=== PATIENT | male | born 1970 | race Hispanic/Latino ===

== ENCOUNTER 2018-07-21 11:54 | Emergency (ER) | payer OTHER, MEDICAID, SELFPAY ==
[2018-07-21 12:02] VITALS: BP 165/103; PULSE 96; RESP 20; TEMP 36.9; O2SAT 100; BMI 46.2
--- NOTE | 2018-07-21 12:16 | PC.NURSE ---
left arm with limited rom due to pain, unable to hyperextend.
--- NOTE | 2018-07-21 12:18 | DI.RAD.S_ITS ---
PROCEDURE: XR SHOULDER LT MIN 2V INDICATIONS: left shoulder pain, now with limited rom TECHNIQUE: 3 views of the shoulder were acquired. COMPARISON: [facility], CR, XR SHOULDER 2+ VIEWS LEFT, 06/05/2018, 9:58. FINDINGS: Bones: No fractures or dislocations. No suspicious bony lesions. Visualized ribs appear intact. Soft tissues: No suspicious soft tissue calcifications. IMPRESSION: No acute fracture. No osseous lesion. If symptoms and/or clinical suspicion for pathology persist, further assessment with repeat, or advanced imaging (e.g., CT, MRI, or bone scan) may be helpful for further assessment. Dictated by: Elina Aleman M.D. on 07/21/2018 at 12:32 Approved by: Elina Aleman M.D. on 07/21/2018 at 12:32
--- NOTE | 2018-07-21 12:44 | ED.UPPEXIN ---
HPI - Extremity Injury (Upper) <Avis Nicholson PA-C - Last Filed: 07/21/18 17:07> General Chief Complaint: Extremity Injury, Upper Stated Complaint: left shoulder pain since beginning of May Time Seen by Provider: 07/21/18 12:44 Source: patient Mode of arrival: ambulatory Limitations: no limitations History of Present Illness HPI narrative: This 48-year-old male comes in due to recurrent right shoulder pain. He states that he has a history of gout attack in his ankles, and most recently in his left knee. He states that in the last 6-8 weeks, he has had 3 episodes of the shoulder pain. They start at the end of a gout attack in his knee. He states that the knee will swell up, get red and painful typical of his gout to the point that he has to walk on crutches. As the pain improves, he starts to have pain in the left shoulder. He states that his PCP did see him in initially thought this was due to muscular strain as patient thought he might have slept awkwardly, however this has occurred again twice in the same setting. He started have a gout attack again 9 days ago, again in the left knee with redness, swelling, and pain. He states this has been better in the last couple of days and walking without crutches, however he awoke with shoulder pain again today. He states the pain is similar to when he had an early rotator cuff problem on that side (he is status post rotator cuff repair many years ago). He states that ibuprofen has not helped that much, Flexeril seem to help. He states that pain worsens with any position change, are movement with cough or turning, better in neutral position. He denies any chest pain or dyspnea. He denies any fever or other new symptoms with this. He does take allopurinol, states he had been taking 100 mg daily until 2 days ago when he ran out. He denies any other complaints on systems review. 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 Related Data Previous Rx's Medication Instructions Recorded allopurinol 100 mg PO DAILY #10 tab 07/21/18 cyclobenzaprine 10 mg PO Q8H PRN #14 tab 07/21/18 hydrocodone-acetaminophen 2 tab PO .HS PRN #5 tab 07/21/18 naproxen 500 mg PO BID #10 tab 07/21/18 Allergies Allergy/AdvReac Type Severity Reaction Status Date / Time pollen extracts Allergy Verified 07/21/18 12:14 Review of Systems <HALLEY Nicholas Last Filed: 07/21/18 17:07> Review of Systems All systems reviewed & are unremarkable except as noted in HPI and below PFSH <Avis Nicholson PA-C - Last Filed: 07/21/18 17:07> Comment: No ETOH, uses CBD oil Exam <Avis Nicholson PA-C - Last Filed: 07/21/18 17:07> Narrative Exam Narrative: GENERAL APPEARANCE: Patient sitting comfortably, in no distress. NECK/THYROID: Neck supple LUNGS: Clear to auscultation bilaterally. HEART: Regular rate and rhythm without murmur, normal S1, S2, no S3 or S4. EXTREMITIES: No cyanosis. No calf tenderness. Finger tips are warm and pink NEUROLOGIC: Alert and oriented, normal speech and coordination. Sensation in the extremities grossly intact MUSCULOSKELETAL: Trace effusion over the left knee, slightly warm to touch compared to the right. Left shoulder is tender throughout the bony prominences especially superior shoulder. Limited range of motion secondary to tenderness. He is able to maintain resisted abduction/adduction at 90? with tenderness. Normal range of motion at the elbow, hand, and wrist Initial Vital Signs Initial Vital Signs: Vital Signs Temperature 98.5 F 07/21/18 12:02 Pulse Rate 96 H 07/21/18 12:02 Respiratory Rate 20 07/21/18 12:02 Blood Pressure 165/103 H 07/21/18 12:02 Pulse Oximetry 100 07/21/18 12:02 <Jerod Harris DO - Last Filed: 07/21/18 17:46> Initial Vital Signs Initial Vital Signs: Vital Signs Temperature 98.5 F 07/21/18 12:02 Pulse Rate 96 H 07/21/18 12:02 Respiratory Rate 20 07/21/18 12:02 Blood Pressure 165/103 H 07/21/18 12:02 Pulse Oximetry 100 07/21/18 12:02 Course <HALLEY Nicholas Last Filed: 07/21/18 17:07> Orders Ordered: ED Orders 07/21/18 12:18 XR shoulder LT min 2V Stat Vital Signs - 8 hr 07/21/18 12:02 07/21/18 13:49 Temperature 98.5 F Pulse Rate 96 H 86 Respiratory Rate 20 18 Blood Pressure 165/103 H 113/88 Pulse Oximetry 100 100 <Jerod Harris DO - Last Filed: 07/21/18 17:46> Orders Ordered: ED Orders 07/21/18 12:18 XR shoulder LT min 2V Stat Vital Signs - 8 hr 07/21/18 12:02 07/21/18 13:49 Temperature 98.5 F Pulse Rate 96 H 86 Respiratory Rate 20 18 Blood Pressure 165/103 H 113/88 Pulse Oximetry 100 100 MDM - Extremity Injury (Upper) <Avis Nicholson PA-C - Last Filed: 07/21/18 17:07> Imaging Data shoulder: Radiologist's impression: [address] [address] XRay Report Signed Patient: Lewis Villegas JMR#: [id number] : 1970Acct:[id number] Age/Sex: 48 / MDate of Service: 07/21/18 Loc: ED Accession Number: [id number] Procedure: XR shoulder LT min 2V Ordering Provider: Jerod Harris D.O. PROCEDURE: XR SHOULDER LT MIN 2V INDICATIONS: left shoulder pain, now with limited rom TECHNIQUE: 3 views of the shoulder were acquired. COMPARISON: [facility], , XR SHOULDER 2+ VIEWS LEFT, 06/05/2018, 9:58. FINDINGS: Bones: No fractures or dislocations. No suspicious bony lesions. Visualized ribs appear intact. Soft tissues: No suspicious soft tissue calcifications. IMPRESSION: No acute fracture. No osseous lesion. If symptoms and/or clinical suspicion for pathology persist, further assessment with repeat, or advanced imaging (e.g., CT, MRI, or bone scan) may be helpful for further assessment. Dictated by: Elina Aleman M.D. on 07/21/2018 at 12:32 Approved by: Elina Aleman M.D. on 07/21/2018 at 12:32 Discharge Plan Departure Patient Disposition: Home Clinical Impression: Left shoulder pain Discharge Date/Time: 07/21/18 13:45 Interventions: ED Discharge Assessment Last Done: 07/21/18 13:49 Instructions: DI for Shoulder Pain Activity Restrictions/Additional Instructions: Please return if you have any acutely worsening symptoms. Otherwise, please call your PCP today and let them know you were seen in the emergency room, and schedule a follow-up in 2-3 days for recheck. If this is part of your gout flare up, it should be getting better by then with the medications. As we talked about, your allopurinol will not help an acute gout attack at all, but since you have had several flares in the last 6 weeks, your dose may need to be adjusted. I did send in a little bit of your previous dose for you to restart. Also please start the prescription naproxen twice daily (instead of ibuprofen) to help with pain and inflammation. You can also take the muscle relaxant and pain pills as needed, but remember these can make you sleepy and not to drive. Prescriptions: New cyclobenzaprine 10 mg tablet 10 mg PO Q8H PRN (Reason: muscle spasm/pain) Qty: 14 RF: 0 hydrocodone-acetaminophen 5-325 mg tablet 2 tab PO .HS PRN (Reason: acute gout/shoulder pain) Qty: 5 RF: 0 allopurinol 100 mg tablet 100 mg PO DAILY Qty: 10 RF: 0 naproxen 500 mg tablet 500 mg PO BID Qty: 10 RF: 0 Referrals: Ioana Woods MD [Family Provider] - <Jerod Harris DO - Last Filed: 07/21/18 17:46> Cosign ED Attending Lila Attestation: I was available for consultation during this patient's emergency department encounter
--- NOTE | 2018-07-21 12:50 | ED_ITS ---
HPI - Extremity Injury (Upper) <Avis Nicholson PA-C - Last Filed: 07/21/18 17:07> General Chief Complaint: Extremity Injury, Upper Stated Complaint: left shoulder pain since beginning of May Time Seen by Provider: 07/21/18 12:44 Source: patient Mode of arrival: ambulatory Limitations: no limitations History of Present Illness HPI narrative: This 48-year-old male comes in due to recurrent right shoulder pain. He states that he has a history of gout attack in his ankles, and most recently in his left knee. He states that in the last 6-8 weeks, he has had 3 episodes of the shoulder pain. They start at the end of a gout attack in his knee. He states that the knee will swell up, get red and painful typical of his gout to the point that he has to walk on crutches. As the pain improves, he starts to have pain in the left shoulder. He states that his PCP did see him in initially thought this was due to muscular strain as patient thought he might have slept awkwardly, however this has occurred again twice in the same setting. He started have a gout attack again 9 days ago, again in the left knee with redness, swelling, and pain. He states this has been better in the last couple of days and walking without crutches, however he awoke with shoulder pain again today. He states the pain is similar to when he had an early rotator cuff problem on that side (he is status post rotator cuff repair many years ago). He states that ibuprofen has not helped that much, Flexeril seem to help. He states that pain worsens with any position change, are movement with cough or turning, better in neutral position. He denies any chest pain or dyspnea. He denies any fever or other new symptoms with this. He does take allopurinol, states he had been taking 100 mg daily until 2 days ago when he ran out. He denies any other complaints on systems review. 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 Related Data Previous Rx's Medication Instructions Recorded allopurinol 100 mg PO DAILY #10 tab 07/21/18 cyclobenzaprine 10 mg PO Q8H PRN #14 tab 07/21/18 hydrocodone-acetaminophen 2 tab PO .HS PRN #5 tab 07/21/18 naproxen 500 mg PO BID #10 tab 07/21/18 Allergies Allergy/AdvReac Type Severity Reaction Status Date / Time pollen extracts Allergy Verified 07/21/18 12:14 Review of Systems <HALLEY Nicholas Last Filed: 07/21/18 17:07> Review of Systems All systems reviewed & are unremarkable except as noted in HPI and below PFSH <Avis Nicholson PA-C - Last Filed: 07/21/18 17:07> Comment: No ETOH, uses CBD oil Exam <Avis Nicholson PA-C - Last Filed: 07/21/18 17:07> Narrative Exam Narrative: GENERAL APPEARANCE: Patient sitting comfortably, in no distress. NECK/THYROID: Neck supple LUNGS: Clear to auscultation bilaterally. HEART: Regular rate and rhythm without murmur, normal S1, S2, no S3 or S4. EXTREMITIES: No cyanosis. No calf tenderness. Finger tips are warm and pink NEUROLOGIC: Alert and oriented, normal speech and coordination. Sensation in the extremities grossly intact MUSCULOSKELETAL: Trace effusion over the left knee, slightly warm to touch compared to the right. Left shoulder is tender throughout the bony prominences especially superior shoulder. Limited range of motion secondary to tenderness. He is able to maintain resisted abduction/adduction at 90? with tenderness. Normal range of motion at the elbow, hand, and wrist Initial Vital Signs Initial Vital Signs: Vital Signs Temperature 98.5 F 07/21/18 12:02 Pulse Rate 96 H 07/21/18 12:02 Respiratory Rate 20 07/21/18 12:02 Blood Pressure 165/103 H 07/21/18 12:02 Pulse Oximetry 100 07/21/18 12:02 <Jerod Harris DO - Last Filed: 07/21/18 17:46> Initial Vital Signs Initial Vital Signs: Vital Signs Temperature 98.5 F 07/21/18 12:02 Pulse Rate 96 H 07/21/18 12:02 Respiratory Rate 20 07/21/18 12:02 Blood Pressure 165/103 H 07/21/18 12:02 Pulse Oximetry 100 07/21/18 12:02 Course <HALLEY Nicholas Last Filed: 07/21/18 17:07> Orders Ordered: ED Orders 07/21/18 12:18 XR shoulder LT min 2V Stat Vital Signs - 8 hr 07/21/18 12:02 07/21/18 13:49 Temperature 98.5 F Pulse Rate 96 H 86 Respiratory Rate 20 18 Blood Pressure 165/103 H 113/88 Pulse Oximetry 100 100 <Jerod Harris DO - Last Filed: 07/21/18 17:46> Orders Ordered: ED Orders 07/21/18 12:18 XR shoulder LT min 2V Stat Vital Signs - 8 hr 07/21/18 12:02 07/21/18 13:49 Temperature 98.5 F Pulse Rate 96 H 86 Respiratory Rate 20 18 Blood Pressure 165/103 H 113/88 Pulse Oximetry 100 100 MDM - Extremity Injury (Upper) <Avis Nicholson PA-C - Last Filed: 07/21/18 17:07> Imaging Data shoulder: Radiologist's impression: [address] [address] XRay Report Signed Patient: Lewis Villegas JMR#: [id number] : 1970Acct:[id number] Age/Sex: 48 / MDate of Service: 07/21/18 Loc: ED Accession Number: [id number] Procedure: XR shoulder LT min 2V Ordering Provider: Jerod Harris D.O. PROCEDURE: XR SHOULDER LT MIN 2V INDICATIONS: left shoulder pain, now with limited rom TECHNIQUE: 3 views of the shoulder were acquired. COMPARISON: [facility], , XR SHOULDER 2+ VIEWS LEFT, 06/05/2018, 9:58. FINDINGS: Bones: No fractures or dislocations. No suspicious bony lesions. Visualized ribs appear intact. Soft tissues: No suspicious soft tissue calcifications. IMPRESSION: No acute fracture. No osseous lesion. If symptoms and/or clinical suspicion for pathology persist, further assessment with repeat, or advanced imaging (e.g. , CT, MRI, or bone scan) may be helpful for further assessment. Dictated by: Elina Aleman M.D. on 07/21/2018 at 12:32 Approved by: Elina Aleman M.D. on 07/21/2018 at 12:32 Discharge Plan Departure Patient Disposition: Home Clinical Impression: Left shoulder pain Discharge Date/Time: 07/21/18 13:45 Interventions: ED Discharge Assessment Last Done: 07/21/18 13:49 Instructions: DI for Shoulder Pain Activity Restrictions/Additional Instructions: Please return if you have any acutely worsening symptoms. Otherwise, please call your PCP today and let them know you were seen in the emergency room, and schedule a follow-up in 2-3 days for recheck. If this is part of your gout flare up, it should be getting better by then with the medications. As we talked about, your allopurinol will not help an acute gout attack at all, but since you have had several flares in the last 6 weeks, your dose may need to be adjusted. I did send in a little bit of your previous dose for you to restart. Also please start the prescription naproxen twice daily (instead of ibuprofen ) to help with pain and inflammation. You can also take the muscle relaxant and pain pills as needed, but remember these can make you sleepy and not to drive. Prescriptions: New cyclobenzaprine 10 mg tablet 10 mg PO Q8H PRN (Reason: muscle spasm/pain) Qty: 14 RF: 0 hydrocodone-acetaminophen 5-325 mg tablet 2 tab PO .HS PRN (Reason: acute gout/shoulder pain) Qty: 5 RF: 0 allopurinol 100 mg tablet 100 mg PO DAILY Qty: 10 RF: 0 naproxen 500 mg tablet 500 mg PO BID Qty: 10 RF: 0 Referrals: Ioana Woods MD [Family Provider] - <Jerod Harris DO - Last Filed: 07/21/18 17:46> Cosign ED Attending Lila Attestation: I was available for consultation during this patient's emergency department encounter
[2018-07-21 13:49] VITALS: BP 113/88; PULSE 86; RESP 18; O2SAT 100
== END 2018-07-21 13:45 | disposition home or self-care (01) ==
PROVIDERS: Emergency Provider Internal Medicine; Family Provider Family Medicine
DX: M25.512 Pain in left shoulder (principal)
CPT/HCPCS: 73030; 99282; 99283